=== PATIENT | female | born 1980 | race Caucasian/White ===

== ENCOUNTER 2018-06-18 17:11 | Inpatient (IN) | payer OTHER ==
[~2018-06-18] VITALS: Ht 167.6 cm; Wt 70.3 kg
[2018-06-18 17:25] VITALS: BP 111/69
[2018-06-18] MEDS ORDERED: IBUPROFEN 600600 M1 PO (17:27)
[2018-06-18] MEDS ORDERED: TYLENOL EXTRA500 MG PO (17:27)
[2018-06-18 17:50] LABS: INFLUENZA A ANTIGEN None Detected (None Detect); INFLUENZA B ANTIGEN None Detected (None Detect)
--- NOTE | 2018-06-18 18:21 | NUR ---
PT INFORMED OF NEED FOR UA; PT STATES SHE IS UNABLE TO VOID AT THIS TIME. PT INFORMED THAT PER KATY MARY A STRAIGHT CATH WOULD BE PERFORMED TO FIND SOURCE OF INFECTION. SECURITY SHIFT SUPERVISOR AT BEDSIDE FOR CHEST XRAY. PT REFUSED CHEST XRAY AND BEING ABLE TO VOID. PT REPORTING PAIN, AND NEED TO BE MORE COMFORTABLE PRIOR TO TEST BEING PERFORMED. KATY MARY AT BEDSIDE TALKING WITH PT ABOUT IMPORTANCE OF LAB TEST AND NEEDING TEST RESULTS PRIOR TO MORE PAIN MEDICATION. PT ASKED FOR PAIN MEDICATIONS AGAIN. KATY MARY AGREEABLE TO GET PT PAIN MEDICATION X1 THEN PT NEEDED TO PERFORM TESTS. PT STATED UNDERSTANDING. PT AGREEABLE. DENIES NEEDS. CALL LIGHT WTIHIN REACH.
[2018-06-18 18:29] LABS: HEMATOCRIT 36.4 % (37.0-47.0); HEMOGLOBIN 12.3 gm/dL (12.0-15.0); MCH 29.9 pg (26.0-34.0); MCHC 33.7 g/dL (28.0-37.0); MCV 88.8 fL (80.0-100.0); NUCLEATED RBCS 0 /100WBC; PLATELET COUNT* 266 thou/uL (150-400); RDW-CV 13.9 % (10.5-14.5); WBC 23.7 thou/uL (4.0-11.0)
[2018-06-18 18:41] LABS: CALCIUM 8.7 mg/dL (8.5-10.1); CREATININE 0.9 mg/dL (0.6-1.3); POTASSIUM 3.9 mmol/L (3.5-5.1); TOTAL BILIRUBIN 0.4 mg/dL (<0.1-1.0); TOTAL PROTEIN 7.3 g/dL (6.4-8.2)
--- NOTE | 2018-06-18 18:42 | NUR ---
PT TAKEN TO RADIOLOGY VIA STRETCHER AT THIS TIME. PAIN MEDS GIVEN PRIOR TO DEPARTURE FROM DEPARTMENT.
[2018-06-18 18:52] LABS: ABSOLUTE LYMPHOCYTES 0.5 thou/uL (0.8-5.3); ABSOLUTE MONOCYTES 0.5 thou/uL (0.0-1.2); ABSOLUTE NEUTROPHILS 22.8 thou/uL (1.6-8.1); PLATELET ESTIMATE ADEQUATE
[2018-06-18 18:56] LABS: URINE BILIRUBIN NEGATIVE (Negative); URINE BLOOD 3+ (Negative); URINE CLARITY CLEAR; URINE COLOR YELLOW; URINE GLUCOSE-RANDOM NEGATIVE (Negative); URINE KETONES TRACE (Negative); URINE LEUKOCYTES-REFLEX 1+ (Negative); URINE PROTEIN 2+ (Negative); URINE SPECIFIC GRAVITY 1.015 (1.005-1.030)
[2018-06-18 18:59] LABS: URINE NITRITE-REFLEX POSITIVE (Negative)
[2018-06-18 19:03] LABS: BACTERIA-REFLEX >30 Many /HPF (None Seen); CASTS None Seen /LPF (None Seen); CRYSTALS None Seen /LPF (None Seen); SQUAMOUS 0-3 Few /LPF (0-3); URINE RBC 0-2 Rare /HPF (0-2); URINE WBC-REFLEX >25 Many /HPF (0-5)
[2018-06-18 19:04] LABS: AMP/METHAMP POSITIVE (Negative); BARBITURATES Negative (Negative); BENZODIAZEPINES Negative (Negative); COCAINE Negative (Negative); METHADONE Negative (Negative); OPIATES POSITIVE (Negative); PCP Negative (Negative); THC Negative (Negative)
[2018-06-18 21:40] VITALS: BP 102/48
[2018-06-18 22:30] VITALS: BP 97/50
[2018-06-19] VITALS: BP 119/51
[2018-06-19 04:00] VITALS: BP 102/53
--- NOTE | 2018-06-19 06:23 | NUR ---
VITALS WNL. SEE MAR. SEE CHARTING. FALL PRECAUTIONS IN PLACE. HOURLY ROUNDING FOR SAFETY.
[2018-06-19 08:00] VITALS: BP 111/65
--- NOTE | 2018-06-19 09:37 | EKG ---
[place] [address] ELECTROCARDIOGRAM REPORT Name: YAMEL ESTRADA Room: [address] ADM [place] .R.#: [id number] Admission: 06/18/18 Attend Phys: Rogelio Ghotra MD Discharge: Date of : 80 Report #: [id number] THIS REPORT FOR: //name// [facility] Test Date: 2018-06-18 Test Time: 20:09:04 Pat Name: YAMEL ESTRADA Department: Room: [facility] Gender: F Purse Maker: [place] : [id number] Requested By: Lorenzo Hannon Order Number: [id number] MD: Brandon Viveros Measurements Intervals [place] Rate: 98 P: 63 FL: 136 QRS: 64 QRSD: 89 T: 46 QT: 347 QTc: 444 Interpretive Statements Sinus rhythm No previous ECG available for comparison Electronically Signed On 06-19-2018 9:37:14 CDT by Brandon Viveros [email or web address] <ELECTRONICALLY SIGNED> By: Brandon Viveros MD, [facility] 06/19/18 0937 08 08 Brandon Viveros MD, FACC /EPI
[2018-06-19 12:23] VITALS: BP 95/41
--- NOTE | 2018-06-19 12:34 | NUR ---
ASSUMED CARE OF PATIENT THIS AM AT 0730. PATIENT IS ALERT AND ORIENTED X 4. SHE IS ANXIOUS AND TEARFUL THIS AM AND C/O SEVERE EDWARD PAIN. STATED THAT HER PAIN WAS STILL A 8 ON PAIN SCALE AFTER FENTANLY GIVEN BY LEGAL INSTRUCTOR NURSE. TELE SHOWS CONTINUOS STACHY PER MONITOR. PATIENT MEDICATED PO FOR PAIN FOLLOWED BY IV TORADOL AND PHENERGAN. PATIENT SLEPT AFTER THE COMBINATION WAS GIVEN BUT COMPLAINED OF CONTINUED PAIN TO DR UMANZOR WHEN SHE MADE HER ROUNDS. ROOM DARKENED FOR PATIENT AND KEPT QUIET. WILL CONTINUE TO MONITOR PATIENT CPMFORT.
--- NOTE | 2018-06-19 12:34 | NUR ---
Pt is A&O. Resides at home with her mom. Normally active and independent. No DME. No hx of HH or SNF. Goal is home at me. Following.
[2018-06-19 15:56] VITALS: BP 89/44
[2018-06-19 23:56] VITALS: BP 117/67
[2018-06-20 04:00] VITALS: BP 94/61
[2018-06-20 04:48] LABS: HEMATOCRIT 30.3 % (37.0-47.0); MCH 30.3 pg (26.0-34.0); MCHC 33.5 g/dL (28.0-37.0); MCV 90.3 fL (80.0-100.0); MPV 7.8 fl. (7.2-11.1); RBC 3.35 mil/uL (4.20-5.00); RDW-CV 14.2 % (10.5-14.5); WBC 9.6 thou/uL (4.0-11.0)
[2018-06-20 05:03] LABS: HEMOGLOBIN 10.1 gm/dL (12.0-15.0)
[2018-06-20 05:33] LABS: CALCIUM 7.8 mg/dL (8.5-10.1); CREATININE 0.7 mg/dL (0.6-1.3); MAGNESIUM 1.8 mg/dL (1.8-2.4); POTASSIUM 4.3 mmol/L (3.5-5.1); TOTAL BILIRUBIN 0.1 mg/dL (<0.1-1.0); TOTAL PROTEIN 5.6 g/dL (6.4-8.2)
--- NOTE | 2018-06-20 07:14 | NUR ---
PT REFUSED NURSING ASSESSMENT. COMPLAINS OF PAIN PAIN MEDICATION GIVEN WITH PARTIAL RELIEF. [id number] VITALS WNL. SEE MAR. SEE CHARTING. FALL PRECAUTIONS IN PLACE. HOURLY ROUNDING FOR SAFETY.
[2018-06-20 08:00] VITALS: BP 106/65
[2018-06-20 08:46] LABS: GLYCOHEMOGLOBIN (HGB A1C) 4.6 % (4.8-5.6)
[2018-06-20 11:30] VITALS: BP 112/39
--- NOTE | 2018-06-20 16:44 | NUR ---
ASSUMED CARE OF PT THIS AM ASSESSED AND DOCUMENTED. PT IS A&0. SHE C/O A HEADACHE. PT SORE TO THE TOUCH ON SINUS POINTS. BROUGHT PT A WASHCLOTH TO PUT ON FACE. SHE WAS ASLEEP BEFORE PLACEMENT AND HAS SLEPT MOST OF THIS SHIFT. VSS ARE WNL. PT IS AFEBRILE AND ON ROOM AIR. PT HAS HAD NO S OR SX OF ADVERSE REACTION TO ABT. HOURLY ROUNDING CONTINUES.
--- NOTE | 2018-06-20 18:15 | NUR ---
PT HAS TRANSFERRED TO MED SURG ROOM 308. CALLED AND GAVE REPORT TO RAUL REYNOLDS. ALL BELOMGINGS PACKED UP AND LEFT WITH PT ACCOMPANIED BY STAFF.
[2018-06-20 18:20] VITALS: BP 108/71
--- NOTE | 2018-06-20 18:20 | NUR ---
TRANSFER NOTE - REC PT FROM [facility]. REPORT FROM RAUL LEON. AGREE WITH CURRENT ASSESSMENT. ALL BELONGINGS BROUGHT UP FROM [facility]. WILL CONTINUE TO MONITOR.
[2018-06-20 20:00] VITALS: BP 115/72
--- NOTE | 2018-06-21 04:23 | NUR ---
ASSESSMENT: PT REMAIN ALERT AND ORIENT TIMES FOUR. UP AD MARIN. TOOK A SHOWER DURING THE BEGINNING OF THE SHIFT. S/O WAS AT THE BEDSIDE ALL NIGHT. C/O LEFT BREAST AREA PAIN, FENTANYL WAS GIVEN WITH GOOD RESULTS. PT SLEPT MOST OF THE NIGHT. VSS, AFEBRILE. NO BM THIS SHIFT. SLOW PROGRESS TOWARDS DC GOALS, WILL CONTINUE TO MONITOR.
[2018-06-21] MEDS ORDERED: FLONASE 0.05%50 MCG NASAL (08:59)
[2018-06-21] MEDS ORDERED: LEVAQUIN 500 M500 M1 PO (08:59)
[2018-06-21 09:39] VITALS: BP 116/71
[2018-06-21 11:14] VITALS: BP 116/71
[2018-06-21 13:28] VITALS: BP 116/71
--- NOTE | 2018-06-21 13:28 | NUR ---
PATIENT IS ALERT AND ORIENTED TODAY, PLEASNT BUT IN A PAIN FROM A HEADACHE. VITAL SIGNS ARE STABLE ON ROOM AIR. PATIENT IS BEING DISCHARGED TO HOME. DISCHARGE INSTRUCTIONS AND PRESCRIPTIONS GIVEN. QUESTIONS ANSWERED FOR PATIENT. LEFT VIA WHHELCHAIR TO HOME WITH BELONGINGS.
--- NOTE | 2018-06-22 16:00 | NUR ---
PER ORDER TO FOLLOW URINE CX, SHOWS CIPRO AND LEVAQUIN ARE SENSITIVE TO CX RESULTS. NO FURTHER ACTION REQUIRED.
== END 2018-06-21 13:32 | disposition home or self-care (01) | DRG 872 ==
LOC: M.ERS 17:11 → M.TBA-ER 19:37 → M.2W 19:37 → M.3W 06-20 18:24
PROVIDERS: Internal Medicine; Nurse Practitioner Psychiatric/Mental Health; ADMIT Internal Medicine
DX: A41.9 Sepsis, unspecified organism (principal); E87.1 Hypo-osmolality and hyponatremia; N30.01 Acute cystitis with hematuria; J32.9 Chronic sinusitis, unspecified; R73.9 Hyperglycemia, unspecified; F11.10 Opioid abuse, uncomplicated; F15.10 Other stimulant abuse, uncomplicated; F17.210 Nicotine dependence, cigarettes, uncomplicated

== ENCOUNTER 2019-10-04 09:02 | Emergency (ER) | payer OTHER ==
[~2019-10-04] VITALS: Ht 167.6 cm; Wt 63.5 kg
[~2019-10-04 09:02] MED LIST: FLONASE 0.05%50 MCG NASAL; IBUPROFEN 600600 M1 PO; LEVAQUIN 500 M500 M1 PO; TYLENOL EXTRA500 MG PO
[2019-10-04 09:20] VITALS: BP 119/77
[2019-10-04] MEDS ORDERED: GENTAK5 ML INTRAOCULR (09:31)
== END 2019-10-04 09:41 | disposition home or self-care (01) ==
LOC: M.ERS 09:02
DX: H10.33 Unspecified acute conjunctivitis, bilateral (principal); F17.210 Nicotine dependence, cigarettes, uncomplicated; H53.8 Other visual disturbances; F15.10 Other stimulant abuse, uncomplicated; Z79.899 Other long term (current) drug therapy

== ENCOUNTER 2019-12-01 21:38 | Emergency (ER) | payer OTHER ==
[~2019-12-01] VITALS: Ht 167.6 cm; Wt 68.0 kg
[~2019-12-01 21:38] MED LIST changes: +GENTAK5 ML INTRAOCULR
[2019-12-01 21:51] VITALS: BP 109/79
[2019-12-01] MEDS ORDERED: LORCET 5-325 M1 EACH PO (21:57)
[2019-12-01] MEDS ORDERED: CLEOCIN HCL300 MG PO (21:57)
== END 2019-12-01 22:32 | disposition home or self-care (01) ==
LOC: M.ERS 21:38
DX: N76.4 Abscess of vulva (principal); F17.210 Nicotine dependence, cigarettes, uncomplicated